=== PATIENT | female | born 1995 | race Caucasian/White ===

== ENCOUNTER 2017-10-28 19:03 | Emergency (ER) | payer MEDICAID ==
[~2017-10-28] VITALS: Ht 160 cm; Wt 70.8 kg
[2017-10-28 19:12] VITALS: Ht 160 cm; Wt 70.8 kg
[2017-10-28 19:57] VITALS: BP 136/69
== END 2017-10-28 19:57 | disposition home or self-care (01) ==
LOC: ED 19:03
DX: O26.893 Other specified pregnancy related conditions, third trimester (principal); K08.89 Other specified disorders of teeth and supporting structures; Z3A.30 30 weeks gestation of pregnancy